=== PATIENT | female | born 1960 | race Caucasian/White ===

== ENCOUNTER 2018-04-02 09:51 | Emergency (ER) | payer OTHER ==
[~2018-04-02] VITALS: Ht 160 cm; Wt 88.0 kg
[2018-04-02 09:57] VITALS: Ht 160 cm; Wt 88.0 kg
[2018-04-02 12:07] LABS: CALCIUM 9.9 mg/dL (8.5-10.1); CARBON DIOXIDE 30.4 mmol/L (21-32); CHLORIDE SERUM 98 mmol/L (98-107); CREATININE SERUM 0.7 mg/dL (0.6-1.0); GFR1 > 60 mL/min; GLUCOSE SERUM 121 mg/dL (74-106); SODIUM SERUM 133 mmol/L (136-145)
[2018-04-02 12:10] LABS: ALBUMIN 3.4 g/dL (3.4-5.0); ALKALINE PHOSPHATASE 106 U/L (46-116); ALT/SGPT 35 U/L (14-59); AST/SGOT 22 U/L (15-37); BILIRUBIN TOTAL 0.22 mg/dL (0.20-1.00); TOTAL PROTEIN, SERUM 7.8 g/dL (6.4-8.2)
[2018-04-02 12:24] LABS: BASOPHIL % 0.6 % (0-2); PLATELET COUNT 269 x10^3mcL (130-400)
[2018-04-02] MEDS ORDERED: BENAZEPRIL HCL-1 TA3 PO (13:37)
[2018-04-02] MEDS ORDERED: AMA1 PO (13:38)
[2018-04-02] MEDS ORDERED: PROZ20 PO (13:39)
[2018-04-02] MEDS ORDERED: [UNRECOGNIZED DRUG - OTHER] GT (13:39)
[2018-04-02] MEDS ORDERED: SIMVASTATIN10 M1 PO (13:41)
[2018-04-02 18:36] VITALS: BP 110/81
== END 2018-04-02 18:36 | disposition left against medical advice (07) ==
LOC: ED 09:51 → DU 17:14 → ED 18:36
PROVIDERS: Emergency Medicine
DX: R07.89 Other chest pain (principal); E87.6 Hypokalemia; I10 Essential (primary) hypertension; E11.9 Type 2 diabetes mellitus without complications; Z88.6 Allergy status to analgesic agent
CPT/HCPCS: 36415; J3475; J3480